=== PATIENT | female | born 1990 | race Caucasian/White ===

== ENCOUNTER 2019-01-31 17:12 | Emergency (ER) | payer BC ==
[2019-01-31 17:26] VITALS: BP 130/93
--- NOTE | 2019-01-31 18:21 | UC ---
UC General HPI - HPI Summary HPI Summary: 28 year old female with h/o multiple autoimmune disease including unknown thyroid disease, IBS, possible RA, presents iwth weakness, fatigue, decreased appetite, general malaise x 2 weeks. no recent thyroid testing, ? circular rash on L calf several months ago, + joint swelling on ankle, hip, fingers with pain. no fever, chills. no sore throat - History of Current Complaint Chief Complaint: UCGeneralIllness Stated Complaint: GENERAL ILLNESS Time Seen by Provider: 01/31/19 17:35 Hx Obtained From: Patient Hx Last Menstrual Period: February 2018 Onset/Duration: Sudden Onset, Lasting Weeks Timing: Constant Onset Severity: Mild Current Severity: Mild Pain Intensity: 4 - Allergy/Home Medications Allergies/Adverse Reactions: Allergies Allergy/AdvReac Type Severity Reaction Status Date / Time No Known Allergies Allergy Verified 01/31/19 17:26 Home Medications: Home Medications Etonogest/Eth.estradiol (Nf) [Nuvaring Vaginal Ring] 1 dose VAGINAL MONTHLY [History Confirmed 01/31/19] PMH/Surg Hx/FS Hx/Imm Hx Previously Healthy: Yes - Surgical History Surgical History: Yes Surgery Procedure, Year, and Place: RIGHT SHOULDER. LEFT ARM. WISDOM TEETH. TONSILS - Social History Alcohol Use: Occasionally Substance Use Type: None Smoking Status (MU): Never Smoked Tobacco Review of Systems All Other Systems Reviewed And Are Negative: Yes Constitutional: Positive: Fever Neurological: Positive: Negative Psychological: Positive: Negative Is Patient Immunocompromised?: Yes Physical Exam Triage Information Reviewed: Yes Appearance: Well-Appearing, No Pain Distress, Well-Nourished Vital Signs: Initial Vital Signs Temp 98.8 F 01/31/19 17:23 Pulse 79 01/31/19 17:23 Resp 12 01/31/19 17:23 BP 130/93 01/31/19 17:23 Pulse Ox 100 01/31/19 17:23 Vital Signs Reviewed: Yes Eyes: Positive: Conjunctiva Clear ENT: Positive: Pharynx normal, TMs normal, Uvula midline. Negative: Tonsillar swelling, Tonsillar exudate, Sinus tenderness Neck: Positive: Supple, Nontender, No Lymphadenopathy, Other: - no thyroid enlargement. Negative: Nuchal Rigidity, Enlarged Nodes @ Respiratory: Positive: Chest non-tender, Lungs clear, Normal breath sounds, No respiratory distress, No accessory muscle use Cardiovascular: Positive: RRR, No Murmur Abdomen Description: Positive: Nontender, No Organomegaly, Soft. Negative: CVA Tenderness (R), CVA Tenderness (L) Musculoskeletal Exam: Normal Musculoskeletal: Positive: Strength Intact Neurological Exam: Normal Psychological Exam: Normal Skin Exam: Normal Course/Dx - Course Course Of Treatment: awiating blood work for lyme, BEVERLY/ RA/ ANti-CCP. f/u with PCP - Diagnoses Provider Diagnosis: Malaise and fatigue Discharge - Sign-Out/Discharge Documenting (check all that apply): Patient Departure All imaging exams completed and their final reports reviewed: No Studies - Discharge Plan Condition: Good Disposition: HOME Patient Education Materials: Weakness (ED) Referrals: Federico Zarate MD [Medical Doctor] - Heather Graves MD [Primary Care Provider] - Jeremiah Watkins MD [Medical Doctor] - Additional Instructions: - Labs drawn, follow up Thursday for results or you will be called sooner if positive - Follow up with primary physician for further work up - Billing Disposition and Condition Condition: GOOD Disposition: Home
[2019-02-01 11:12] LABS: ABS Eosinophils 0.1 10^3/ul (0-0.6); ABS Lymphocytes 2.9 10^3/ul (1.0-4.8); ABS Monocytes 0.4 10^3/ul (0-0.8); ABS Neutrophils 3.9 10^3/ul (1.5-7.7); Hematocrit 43 % (35-47); Hemoglobin 14.7 g/dL (12.0-16.0); Lymphocyte % 39.6 %; Mean Corpuscular HGB Conc 35 g/dL (31-36); Mean Corpuscular Hemoglobin 29 pg (27-31); Mean Corpuscular Volume 85 fL (80-97); Mean Platelet Volume 10.2 fL (7.4-10.4); Nucleated Red Blood Cells % 0.2; Platelet Count 208 10^3/uL (150-450); Red Blood Count 5.06 10^6 /uL (3.70-4.87); Red Cell Distribution Width 12 % (10-15); White Blood Count 7.3 10^3/uL (3.5-10.8)
[2019-02-01 11:40] LABS: Albumin 4.4 g/dL (3.2-5.2); Anion Gap 7 mmol/L (2-11); CO2 Carbon Dioxide 26 mmol/L (22-32); Calcium 9.2 mg/dL (8.6-10.3); Chloride 105 mmol/L (101-111); Potassium 3.5 mmol/L (3.5-5.0); Sodium 138 mmol/L (135-145)
[2019-02-01 11:46] LABS: ALT 23 U/L (7-52); AST 19 U/L (13-39); Albumin/Globulin Ratio 1.6 (1-3); Alkaline Phosphatase 42 U/L (34-104); Blood Urea Nitrogen 10 mg/dL (6-24); EGFR African American 99.8 (>60); EGFR Non-African American 82.5 (>60); Globulin 2.8 g/dL (2-4); Glucose 99 mg/dL (70-100); Total Protein 7.2 g/dL (6.4-8.9)
[2019-02-01 11:59] LABS: Rheumatoid Factor < 10 IU/mL (<15)
[2019-02-01 12:15] LABS: TSH (Thyroid Stimulating Horm) 1.37 mcIU/mL (0.34-5.60)
[2019-02-01 12:17] LABS: Free T4 0.76 ng/dL (0.61-1.12)
[2019-02-02 22:15] LABS: Cyclic Citrullinated Pept IgG <15.6 U
== END 2019-01-31 18:34 | disposition home or self-care (01) ==
LOC: UCEAST 17:12
DX: R53.83 Other fatigue (principal); E07.9 Disorder of thyroid, unspecified; K58.9 Irritable bowel syndrome, unspecified
CPT/HCPCS: 36415; 80053; 83036; 84439; 84443; 84481; 85025; 86038; 86200; 86308; 86431; 99211; G0463

== ENCOUNTER 2019-08-30 14:25 | Emergency (ER) | payer BC ==
--- NOTE | 2019-08-30 14:38 | UC ---
FLU HPI - HPI Summary HPI Summary: 28 yo female presents with flu-like symptoms. She tells me that this morning she developed fatigue, sore throat, feeling feverish, dry cough, and runny nose. She states many of her coworkers have been sick with the flu and she is concerned that she has the flu today. She has not taken anything OTC for her symptoms. She did not get a flu shot this year. She denies sore throat, SOB, chest pain, abdominal pain, n/v - History of Current Complaint Stated Complaint: BODYACHES FEVER SORE THROAT EAR PAIN CONGESTION HE Time Seen by Provider: 08/30/19 14:37 Hx Obtained From: Patient Hx Last Menstrual Period: February 2018 Onset/Duration: Sudden Onset Severity Currently: Mild Severity Initially: Mild Pain Intensity: 3 Pain Scale Used: 0-10 Numeric - Allergy/Home Medications Allergies/Adverse Reactions: Allergies Allergy/AdvReac Type Severity Reaction Status Date / Time almond Allergy Hives Verified 08/30/19 14:47 Home Medications: Home Medications Levothyroxine TAB* [Synthroid TAB*] 50 mcg PO DAILY 08/30/19 [History Confirmed 08/30/19] PMH/Surg Hx/FS Hx/Imm Hx Endocrine History: Hypothyroidism - Surgical History Surgical History: Yes Surgery Procedure, Year, and Place: RIGHT SHOULDER. LEFT ARM. WISDOM TEETH. TONSILS - Family History Known Family History: Positive: Non-Contributory - Social History Occupation: Employed Full-time Lives: With Family Alcohol Use: Occasionally Substance Use Type: None Smoking Status (MU): Never Smoked Tobacco Review of Systems All Other Systems Reviewed And Are Negative: No Constitutional: Positive: Fatigue, Other - Body aches Skin: Positive: Negative Eyes: Positive: Negative ENT: Positive: Sore Throat, Nasal Discharge, Sinus Congestion, Sinus Pain/ Tenderness Respiratory: Positive: Cough Cardiovascular: Positive: Negative Gastrointestinal: Positive: Negative Neurovascular: Positive: Negative Neurological/Mental Status: Positive: Negative Psychological: Positive: Negative Physical Exam - Summary Physical Exam Summary: GENERAL: NAD. WDWN. No pain distress. SKIN: No rashes, sores, lesions, or open wounds. HEENT: Head: AT/NC Eyes: EOM intact. Conjunctiva clear without inflammation or discharge. Ears: Hearing grossly normal. TMs intact, no bulging, erythema, or edema. Nose: Nasal mucosa pink and moist. NTTP maxillary and frontal sinus. Throat: Posterior oropharynx without exudates, erythema, or tonsillar enlargement. Uvula midline. NECK: Supple. Nontender. No lymphadenopathy. CHEST: CTAB. No r/r/w. No accessory muscle use. Breathing comfortably and in no distress. CV: RRR. Pulses intact. Cap refill <2seconds NEURO: Alert. PSYCH: Age appropriate behavior. Triage Information Reviewed: Yes Vital Signs: Vital Signs: Temp Pulse Resp BP Pulse Ox 99.4 F 97 16 149/91 99 08/30/19 14:40 08/30/19 14:40 08/30/19 14:40 08/30/19 14:40 08/30/19 14:40 Laboratory Tests 08/30/19 14:55 Influenza A (Rapid) Negative Influenza B (Rapid) Negative Etonogest/Eth.estradiol (Nf) [Nuvaring Vaginal Ring] 1 dose VAGINAL MONTHLY [History Confirmed 08/30/19] Levothyroxine TAB* [Synthroid TAB*] 50 mcg PO DAILY 08/30/19 [History Confirmed 08/30/19] Oseltamivir CAP* [Tamiflu CAP*] 75 mg PO BID #10 cap 08/30/19 [Rx] Vital Signs Reviewed: Yes Flu Course/Dx - Course Course Of Treatment: POC flu negative, but she has had exposure and is symptomatic - she elects to try tamiflu today. Advised supportive care - Differential Dx/Diagnosis Provider Diagnosis: Flu-like symptoms Discharge ED - Sign-Out/Discharge Documenting (check all that apply): Patient Departure All imaging exams completed and their final reports reviewed: No Studies - Discharge Plan Condition: Stable Disposition: HOME Prescriptions: Oseltamivir CAP* [Tamiflu CAP*] 75 mg PO BID #10 cap Patient Education Materials: Influenza (ED), Viral Syndrome (ED) Referrals: Heather Graves MD [Primary Care Provider] - Additional Instructions: YOUR FLU TEST WAS NEGATIVE TODAY, BUT GIVEN YOUR EXPOSURE AND SYMPTOMS YOU ARE BEING TREATED FOR THE FLU Most people with the flu recover within one to two weeks without treatment. However, serious complications of the flu can occur. Go to the ER immediately if you: -- You feel short of breath or have trouble breathing -- You have pain or pressure in your chest or stomach -- You have signs of being dehydrated, such as dizziness when standing or not passing urine -- You feel confused -- You cannot stop vomiting or you cannot drink enough fluids There are several groups of people who are at increased risk for flu complications. These include women, young children (<5 years of age and especially <2 years of age), people older than 65 years of age, and people with certain diseases such as chronic lung disease (such as asthma), heart disease, diabetes, immunosuppressing conditions (such as HIV infection or transplantation), and some other diseases. Treat symptoms Treating the symptoms of influenza can help you to feel better but will not make the flu go away faster. -- Rest until the flu is fully resolved, especially if the illness has been severe. -- Fluids Drink enough fluids so that you do not become dehydrated. One way to appellate court judge if you are drinking enough is to look at the color of your urine. Normally, urine should be light yellow to nearly colorless. If you are drinking enough, you should pass urine every three to five hours. -- Acetaminophen (sample brand name: Tylenol) can relieve fever, headache, and muscle aches. Aspirin and medicines that include aspirin (eg, bismuth subsalicylate [sample brand name: Pepto-Bismol]) are not recommended for children under 18 because aspirin can lead to a serious disease called Moreno syndrome. -- Cough medicines are not usually helpful; cough usually resolves without treatment. We do not recommend cough or cold medicine for children under age 6 years. Antiviral treatment Antiviral medicines can be used to treat or prevent influenza. When used as a treatment, the medicine does not eliminate flu symptoms, although it can reduce the severity and duration of symptoms by about one day. Not every person with influenza needs an antiviral medicine, but some people do; the decision is based upon several factors. If you are severely ill and/or have risk factors for developing complications of influenza, you will need an antiviral agent. People who are only mildly ill and have no risk factors for complications usually do not need to be treated with antiviral medication. - Billing Disposition and Condition Condition: STABLE Disposition: Home
[2019-08-30 14:47] VITALS: BP 149/91
[2019-08-30 15:07] LABS: Influenza A Molecular Negative (Negative); Influenza B Molecular Negative (Negative)
== END 2019-08-30 15:18 | disposition home or self-care (01) ==
LOC: UCEAST 14:25
DX: J02.9 Acute pharyngitis, unspecified (principal); R53.83 Other fatigue; R50.9 Fever, unspecified; R05 Cough; R09.89 Other specified symptoms and signs involving the circulatory and respiratory systems; R09.81 Nasal congestion; M79.10 Myalgia, unspecified site; E03.9 Hypothyroidism, unspecified; Z91.018 Allergy to other foods; Z79.890 Hormone replacement therapy
CPT/HCPCS: 99212; G0463

== ENCOUNTER 2019-10-10 14:47 | Emergency (ER) | payer BC, OTHER ==
--- NOTE | 2019-10-10 15:12 | UC ---
FLU HPI - HPI Summary HPI Summary: 29 yo female presents with cough. She tells me that for the last 2 weeks she has had a dry cough. She was tested for COVID on 09/27 and results were negative. She reports that about 10 days ago she felt feverish, but nothing since that time. She also reports feeling some "migrating" chest discomfort that feels like a burning. Notices it more with taking a deep breath and with laying on her left or right side in bed. She states this feels like it is improving. Also notes feeling that she cannot get a "full deep breath". Notes a hx of "acid reflux" and has been trying to take prilosec daily with no change in her chest burning. She has been taking tylenol for her symptoms with no change. No NSAIDs as she has a hx of IBS. She did have the flu about a month ago, but has recovered from this. Does not smoke. No recent travel. States she has been home isolating for the last 2 weeks - no sick contacts. Denies fever, chills, sinus symptoms, sore throat, abdominal pain, n/v/d/c. - History of Current Complaint Stated Complaint: COUGH, HURTS TO BREATHE Time Seen by Provider: 10/10/19 15:11 Hx Obtained From: Patient Hx Last Menstrual Period: February 2018 Onset/Duration: Sudden Onset Severity Currently: Mild Severity Initially: Moderate Pain Intensity: 3 Pain Scale Used: 0-10 Numeric - Allergy/Home Medications Allergies/Adverse Reactions: Allergies Allergy/AdvReac Type Severity Reaction Status Date / Time almond Allergy Hives Verified 10/10/19 15:22 Home Medications: Home Medications Etonogest/Eth.estradiol (Nf) [Nuvaring Vaginal Ring] 1 dose VAGINAL MONTHLY [History Confirmed 10/10/19] Levothyroxine TAB* [Synthroid TAB*] 50 mcg PO DAILY 08/30/19 [History Confirmed 10/10/19] Acetaminophen [Tylenol Extra Strength] 1,000 mg PO Q6HR 10/10/19 [History Confirmed 10/10/19] Albuterol HFA INHALER* [Ventolin HFA Inhaler*] 1 puff INH Q6HR 10/10/19 [ History Confirmed 10/10/19] Azithromycin TAB* [Zithromax TAB (Z-SARAH) 250 mg #6 tabs] 2 tab PO .TODAY, THEN 1 DAILY #1 sarah 10/10/19 [Rx] guaiFENesin [Mucinex] 600 mg PO Q12HR 10/10/19 [History Confirmed 10/10/19] PMH/Surg Hx/FS Hx/Imm Hx - Additional Past Medical History Additional PMH: IBS Arthritis Endocrine History: Hypothyroidism - Surgical History Surgical History: Yes Surgery Procedure, Year, and Place: RIGHT SHOULDER. LEFT ARM. WISDOM TEETH. TONSILS - Family History Known Family History: Positive: Other - Thyroid - Social History Lives: With Family Alcohol Use: Occasionally Substance Use Type: None Smoking Status (MU): Never Smoked Tobacco Review of Systems All Other Systems Reviewed And Are Negative: No Constitutional: Positive: Fatigue Skin: Positive: Negative Eyes: Positive: Negative ENT: Positive: Sore Throat Respiratory: Positive: Cough Cardiovascular: Positive: Chest Pain Gastrointestinal: Positive: Negative Neurological/Mental Status: Positive: Negative Psychological: Positive: Negative Physical Exam - Summary Physical Exam Summary: GENERAL: NAD. WDWN. No pain distress. SKIN: No rashes, sores, lesions, or open wounds. HEENT: Head: AT/NC Eyes: EOM intact. Conjunctiva clear without inflammation or discharge. Ears: Hearing grossly normal. TMs intact, no bulging, erythema, or edema. Nose: Nasal mucosa pink and moist. NTTP maxillary and frontal sinus. Throat: Posterior oropharynx without exudates, erythema, or tonsillar enlargement. Uvula midline. NECK: Supple. Nontender. No lymphadenopathy. CHEST: CTAB. No r/r/w. No accessory muscle use. Breathing comfortably and in no distress. CV: RRR. Pulses intact. Cap refill <2seconds. No friction rub appreciated. NEURO: Alert. PSYCH: Age appropriate behavior. Vital Signs: Vital Signs: Temp Pulse Resp BP Pulse Ox 98.6 F 80 16 146/90 100 10/10/19 16:15 10/10/19 16:15 10/10/19 16:15 10/10/19 16:15 10/10/19 16:15 Vital Signs Reviewed: Yes Diagnostics - Radiology CXR Radiology Interpretation Completed By: Radiologist Summary of Radiographic Findings: IMPRESSION: No active cardiopulmonary disease is noted. - EKG Summary of EKG Findings: 87bpm NSR. No ST changes as read by Dr. Ventura Flu Course/Dx - Course Course Of Treatment: CXR negative. EKG WNL as above. Suspect viral cough s/p her recent influenza. Considered pericarditis (low suspicion) and advised to try taking naproxen she has at home - no high risk factors and EKG WNL with no friction rub on exam. Discussed viral vs bacterial with the pt and she prefers to try anbx at this time. Will rx for zpak. She also states her PCP called her in a steroid inhaler that she has not picked up yet, but plans to today. Advised to use this as prescribed. Advised no repeat COVID testing at this time as her symptoms have been ~14days with little change and symptoms began BEFORE covid testing that resulted negative. - Differential Dx/Diagnosis Provider Diagnosis: Bronchitis Discharge ED - Sign-Out/Discharge Documenting (check all that apply): Patient Departure All imaging exams completed and their final reports reviewed: Yes - Discharge Plan Condition: Stable Disposition: HOME Prescriptions: Azithromycin TAB* [Zithromax TAB (Z-SARAH) 250 mg #6 tabs] 2 tab PO .TODAY, THEN 1 DAILY #1 sarah Patient Education Materials: Acute Bronchitis (ED) Referrals: Heather Graves MD [Primary Care Provider] - Additional Instructions: If you develop a fever, shortness of breath, chest pain, new or worsening symptoms - please call your PCP or go to the ED immediately. Your blood pressure was high at todays visit. Please see your primary provider within 4 weeks for recheck and re-evaluation. Use your prescribed inhalers as directed - Billing Disposition and Condition Condition: STABLE Disposition: Home
[2019-10-10 16:17] VITALS: BP 146/90
== END 2019-10-10 16:50 | disposition home or self-care (01) ==
LOC: UCEAST 14:47
DX: J40 Bronchitis, not specified as acute or chronic (principal); R07.89 Other chest pain; Z91.018 Allergy to other foods
CPT/HCPCS: 71046; 99212; G0463

== ENCOUNTER 2019-10-21 11:28 | Emergency (ER) | payer BC, OTHER ==
--- NOTE | 2019-10-21 11:37 | ED ---
Complex/Multi-Sys Presentation - HPI Summary HPI Summary: 29 y/o F presenting to [facility] [place] c/o fever, fatigue, sore throat, ear ache, chest pain, shortness of breath. Patient had flu like symptoms in August. Began to feel better in September, had sore throat September 22 and some post nasal drip. Had CP the that felt like heartburn. Had low grade fever 99.7. Also felt some SOB. Tested negative for COVID September 27. Took SpO2 98%. Has been monitoring HR and SpO2 at home. Throat burning subside but still had CP. Baseline hypothyroid from [facility]. Did feel like her thyroid was enlarged at some point. Did get albuterol inhaler from her physician. Also saw her sales exhibitor who did not think her SOB was related to thyroid. Still reported some pleuritic CP. Went to 10/09, had XRay and EKG, was put on azithromycin for bronchitis. O2 was 99%. Also has had negative monoscreen. Having persistent rib pain. This week has felt fatigued. Has not had exposure to anyone, has not been out of house. Was placed on medrol dose sarah yesterday by PCP - History Of Current Complaint Time Seen by Provider: 10/21/19 11:30 Hx Obtained From: Patient Onset/Duration: Lasting Weeks, Still Present Timing: Constant, Intermittent, Lasting: Aggravating Factor(s): Nothing Alleviating Factor(s): Nothing - Allergies/Home Medications Allergies/Adverse Reactions: Allergies Allergy/AdvReac Type Severity Reaction Status Date / Time almond Allergy Hives Verified 10/10/19 15:22 Home Medications: Home Medications Etonogest/Eth.estradiol (Nf) [Nuvaring Vaginal Ring] 1 dose VAGINAL MONTHLY [History Confirmed 10/10/19] Levothyroxine TAB* [Synthroid TAB*] 50 mcg PO DAILY 08/30/19 [History Confirmed 10/10/19] Acetaminophen [Tylenol Extra Strength] 1,000 mg PO Q6HR 10/10/19 [History Confirmed 10/10/19] Albuterol HFA INHALER* [Ventolin HFA Inhaler*] 1 puff INH Q6HR 10/10/19 [ History Confirmed 10/10/19] Azithromycin TAB* [Zithromax TAB (Z-SARAH) 250 mg #6 tabs] 2 tab PO .TODAY, THEN 1 DAILY #1 sarah 10/10/19 [Rx] guaiFENesin [Mucinex] 600 mg PO Q12HR 10/10/19 [History Confirmed 10/10/19] PMH/Surg Hx/FS Hx/Imm Hx Endocrine/Hematology History: Reports: Hx Thyroid Disease - hypo Denies: Hx Diabetes Cardiovascular History: Denies: Hx Hypertension, Hx Pacemaker/ICD History: Denies: Hx Renal Disease Sensory History: Denies: Hx Hearing Aid Psychiatric History: Denies: Hx Panic Disorder - Surgical History Surgery Procedure, Year, and Place: RIGHT SHOULDER. LEFT ARM. WISDOM TEETH. TONSILS - Family History Known Family History: Positive: Other - Thyroid, Non-Contributory - Social History Alcohol Use: Occasionally Substance Use Type: Reports: None Smoking Status (MU): Never Smoked Tobacco Review of Systems Positive: Fever, Fatigue Positive: Sore Throat, Ear Ache Positive: Chest Pain Positive: Shortness Of Breath All Other Systems Reviewed And Are Negative: Yes Physical Exam - Summary Physical Exam Summary: Constitutional: Well-developed, Well-nourished, Alert. (-) Distressed Skin: Warm, Dry HENT: Normocephalic; Atraumatic Eyes: Conjunctiva normal Neck: Musculoskeletal ROM normal neck. (-) JVD, (-) Stridor, (-) Nuchal rigidity Cardio: Rhythm regular, rate normal, Heart sounds normal; Intact distal pulses; Radial pulses are 2+ and symmetric. (-) Murmur Pulmonary/Chest wall: Effort normal. (-) Respiratory distress, (-) Wheezes, (-) Rales Abd: Soft, (-) tenderness, (-) Distension, (-) Guarding, (-) Rebound Musculoskeletal: (-) Edema Lymph: (-) Cervical adenopathy Neuro: Alert, Oriented x3 Psych: Mood and affect Normal Triage Information Reviewed: Yes Vital Signs Reviewed: Yes Procedures - Sedation Patient Received Moderate/Deep Sedation with Procedure: No Diagnostics - Laboratory Lab Statement: Any lab studies that have been ordered have been reviewed, and results considered in the medical decision making process. - Radiology CXR Radiology Interpretation Completed By: Radiologist - IMPRESSION: No active cardiopulmonary disease is noted. ED physician has reviewed this imaging report. - EKG 1209 Cardiac Rate: NL - 83 BPM EKG Rhythm: Sinus Rhythm Summary of EKG Findings: An EKG at 1209 reveals normal sinus rhythm 83 BPM, nml axis, nml intervals. No STEMI. No acute changes. ED physician has reviewed and interpreted this EKG. Complex Multi-Symp Course/Dx Course Of Treatment: 29 y/o F w hx [facility] p/w chest tightness, SOB, fatigue , sore throat and tactile fevers. - well appearing, easy WOB on RA. EKG sinus. CXR negative for PNA. Will retest for COVID. - Diagnoses Provider Diagnoses: Shortness of breath Discharge ED - Sign-Out/Discharge Documenting (check all that apply): Patient Departure - Discharge Plan Condition: Stable Disposition: HOME Patient Education Materials: Shortness of Breath (ED) Forms: COVID-19 Tested & Isolation Referrals: Heather Graves MD [Primary Care Provider] - Additional Instructions: You were seen in the emergency department for coronavirus rule out. You are in quarantine, this means she should stay in your house. You should wear a mask you're outside of your personal room. We encourage handwashing as well as limited contact with other people including the elderly and the immunocompromised. If any studies were not completed at the time of discharge you will be called with the relevant results. Please follow up with your primary care doctor in next 2-3 days and return to emergency department for trouble breathing, worsening or concerning symptoms. It was a pleasure taking care of you today. - Billing Disposition and Condition Condition: STABLE Disposition: Home - Attestation Statements Document Initiated by Vivian: Yes Documenting Scribe: Layne Hanson Provider For Whom Vivian is Documenting (Include Credential): Hill Montalvo MD Scribe Attestation: I, Layne Hanson, scribed for Hill Montalvo MD on 10/21/19 at 1358. Scribe Documentation Reviewed: Yes Provider Attestation: The documentation as recorded by the Layne galindo accurately reflects the service I personally performed and the decisions made by me, Hill Montalvo MD Status of Scribe Document: Viewed
[2019-10-21 14:23] VITALS: BP 135/91
== END 2019-10-21 14:35 | disposition home or self-care (01) ==
LOC: ED 11:28
DX: R06.02 Shortness of breath (principal); E03.9 Hypothyroidism, unspecified; Z79.890 Hormone replacement therapy
CPT/HCPCS: 71045; 87635; 93005; 99282; G2023